=== PATIENT | male | born 1980 | race Caucasian/White ===

== ENCOUNTER 2021-01-10 18:06 | Emergency (ER) | payer MEDICAID ==
[~2021-01-10] VITALS: Ht 182.9 cm; Wt 88.5 kg
[2021-01-10 19:04] VITALS: BP 137/84
[2021-01-10] MEDS: Fluorescein Strips LEFT EYE ONE (19:09)
[2021-01-10] MEDS: Tetracaine 0.5% Opth 4ml Soln LEFT EYE ONE (19:10)
--- NOTE | 2021-01-10 19:19 | Emergency Room Report ---
History of Present Illness General Chief Complaint: Eye Problems Source: Patient Present Illness HPI 40-year-old male with no signal past medical history of hypertension currently medication here complaining of left eye pain and irritation that started after moving furniture 2 days ago. Denies any direct injury, chemical exposure splashes to the eye. Denies any vision changes. Denies wearing contact lenses or eyeglasses. Denies photophobia. Complains of yellow discharge from the left eye. Has not taken medication for symptom Allergies: Coded Allergies: No Known Allergies (Unverified , 01/10/21) COVID-19 Screening Contact w/high risk pt: No Experienced COVID-19 symptoms?: No COVID-19 Testing performed PARENT EDUCATOR: No Patient History Past Medical History: see triage record Past Surgical History: none Pertinent Family History: none Immunizations: UTD Reviewed Nursing Documentation: PMH: Agreed; PSxH: Agreed Nursing Documentation-PMH Past Medical History: No History, Except For Hx Hypertension: Yes Review of Systems All Other Systems: negative except mentioned in HPI Physical Exam Vital Signs Date Time Temp Pulse Resp B/P (MAP) Pulse Ox O2 Delivery O2 Flow Rate FiO2 01/10/21 18:49 98.8 87 18 137/84 (101) 98 Room Air Sp02 EP Interpretation: reviewed, normal General Appearance: no apparent distress, alert, GCS 15, non-toxic Head: normocephalic, atraumatic Eyes: left eye other - Bacterial conjunctivitis noted, no corneal abrasion or ulceration noted ENT: hearing grossly normal, normal pharynx, no angioedema, normal voice Neck: no bony tend Respiratory: no retraction, no accessory muscle use Cardiovascular #1: regular rate, rhythm, no edema Gastrointestinal: soft Musculoskeletal: back normal Neurologic: alert, motor strength/tone normal, oriented x3, sensory intact, responsive, speech normal Psychiatric: judgement/insight normal, memory normal, mood/affect normal, no suicidal/homicidal ideation Skin: no rash Lymphatic: no adenopathy Medical Decision Making PA Attestation All diagnoses and treatment plans were reviewed and discussed with my supervising physician Dr. Faye Diagnostic Impression: Primary Impression: Bacterial conjunctivitis ER Course 40-year-old male with no signal past medical history of hypertension currently medication here complaining of left eye pain and irritation that started after moving furniture 2 days ago. Denies any direct injury, chemical exposure splashes to the eye. Denies any vision changes. Denies wearing contact lenses or eyeglasses. Denies photophobia. Complains of yellow discharge from the left eye. Has not taken medication for symptom Ddx considered but are not limited to: bacterial conjunctivitis, allergic conjunctivitis, viral conjunctivitis, periorbital cellulitis, global trauma Vital signs: are WNL, pt. is afebrile H&PE are most consistent with: Bacterial conjunctivitis ORDERS: Ofloxacin ophthalmic ED INTERVENTIONS: None required at this time. DISCHARGE: At this time pt. is stable for d/c to home. Will provide printed patient care instructions, and any necessary prescriptions. Care plan and follow up instructions have been discussed with the patient prior to discharge. Patient take medication as directed, follow with heating and cooling technician, if worsening symptom return to the emergency room Last Vital Signs Date Time Temp Pulse Resp B/P (MAP) Pulse Ox O2 Delivery O2 Flow Rate FiO2 01/10/21 19:04 98.8 18 137/84 98 Room Air 01/10/21 18:49 87 Disposition: HOME, SELF-CARE Condition: Stable Scripts Ofloxacin (Ofloxacin) 5 Ml Drops 2 DROP OP Q6HR for 7 Days, #5 ML Prov: Jeff Cuellar 01/10/21 Referrals: NOT CHOSEN IPA/MD,REFERRING (PCP) Patient Instructions: Bacterial Conjunctivitis, [id number] Additional Instructions: Take medication as directed, follow primary care provider, if worsening symptoms return to the emergency room Jeff Cuellar Jan 10, 2021 19:19
[2021-01-10] MEDS ORDERED: OFLOXACIN10 ML OP (19:21)
[2021-01-10 19:25] VITALS: BP 137/84
--- NOTE | 2021-01-10 19:25 | NUR ---
ER DISCHARGE NOTE: Patient is cleared to be discharged per ERMD, pt is aox4, on room air, with stable vital signs. pt was given dc and prescription instructions, pt was able to verbalize understanding, pt id band removed without complications. pt is able to ambulate with steady gait. pt took all belongings.
== END 2021-01-10 19:26 | disposition home or self-care (01) ==
LOC: EMR 18:50
DX: H10.89 Other conjunctivitis (principal); I10 Essential (primary) hypertension
CPT/HCPCS: 99282

== ENCOUNTER 2021-01-14 15:24 | Emergency (ER) | payer MEDICAID, OTHER ==
[~2021-01-14] VITALS: Ht 182.9 cm; Wt 88.5 kg
[~2021-01-14 15:24] MED LIST: OFLOXACIN10 ML OP
--- NOTE | 2021-01-14 15:50 | Emergency Room Report ---
History of Present Illness General Chief Complaint: Eye Problems Source: Patient (Jeff Cuellar) Present Illness HPI 40-year-old male 3-year complaining of worsening right rotation. Patient was seen here 1 week ago, after moving furniture reporting the eye was irritated. Patient was prescribed ofloxacin ophthalmic reports that now the right eye is also irritated. Now has pain in the left eye. Denies any trauma. Reports that symptoms started ever since he moved into a new apartment. Has not had follow- up with [employer]. Vision has not changed. Complains of periorbital pain. Denies any cough or congestion. Denies fever and chills. (Jeff Cuellar) Allergies: Coded Allergies: No Known Allergies (Unverified , 01/10/21) COVID-19 Screening Contact w/high risk pt: No Experienced COVID-19 symptoms?: No COVID-19 Testing performed TOWNSHIP SUPERVISOR: No (Jeff Cuellar) Patient History Past Medical History: see triage record Past Surgical History: none Pertinent Family History: none Immunizations: UTD Reviewed Nursing Documentation: PMH: Agreed; PSxH: Agreed (Jeff Cuellar) Nursing Documentation-PMH Past Medical History: No History, Except For Hx Hypertension: Yes (Jeff Cuellar) Review of Systems All Other Systems: negative except mentioned in HPI (Jeff Cuellar) Physical Exam Vital Signs Date Time Temp Pulse Resp B/P (MAP) Pulse Ox O2 Delivery O2 Flow Rate FiO2 01/14/21 15:33 98.4 100 20 145/85 (105) 98 Room Air Sp02 EP Interpretation: reviewed, normal General Appearance: no apparent distress, alert, GCS 15, non-toxic Head: normocephalic, atraumatic Eyes: left eye other - Corneal ulceration not dendritic ENT: hearing grossly normal, normal pharynx, no angioedema, normal voice Neck: supple Respiratory: no retraction Cardiovascular #1: no murmur Gastrointestinal: soft Musculoskeletal: back normal Neurologic: alert, motor strength/tone normal, oriented x3, sensory intact, responsive, speech normal Psychiatric: judgement/insight normal, memory normal, mood/affect normal, no suicidal/homicidal ideation Skin: no rash, other - Periorbital cellulitis Lymphatic: no adenopathy (Jeff Cuellar) Medical Decision Making PA Attestation All my diagnosis and treatment plans were reviewed ad discussed with my supervising physician Dr. Najera (Jeff Cuellar) Diagnostic Impression: Primary Impression: Corneal ulcer Additional Impression: Periorbital cellulitis ER Course 40-year-old male 3-year complaining of worsening right rotation. Patient was seen here 1 week ago, after moving furniture reporting the eye was irritated. Patient was prescribed ofloxacin ophthalmic reports that now the right eye is also irritated. Now has pain in the left eye. Denies any trauma. Reports that symptoms started ever since he moved into a new apartment. Has not had follow- up with manager [employer]. Vision has not changed. Complains of periorbital pain. Denies any cough or congestion. Denies fever and chills. Ddx considered but are not limited to: bacterial conjunctivitis, allergic conjunctivitis, viral conjunctivitis, periorbital cellulitis, global trauma Vital signs: are WNL, pt. is afebrile H&PE are most consistent with: Nondendric left corneal ulcer, cellulitis, periorbital cellulitis ORDERS: Augmentin, ciprofloxacin ophthalmic, prednisone, Benadryl ED INTERVENTIONS: Toradol DISCHARGE: At this time pt. is stable for d/c to home. Will provide printed pat ient care instructions, and any necessary prescriptions. Care plan and follow up instructions have been discussed with the patient prior to discharge. Follow-up with manager bi[employer], worsening symptoms return to the emergency (Jeff Cuellar) Last Vital Signs Date Time Temp Pulse Resp B/P (MAP) Pulse Ox O2 Delivery O2 Flow Rate FiO2 01/14/21 15:33 98.4 100 20 145/85 (105) 98 Room Air (Jeff Cuellar) Status: improved (Moisés Najera MD) Disposition: HOME, SELF-CARE Condition: Stable Scripts Diphenhydramine HCl (Benadryl) 25 Mg Capsule 25 MG PO BID, #14 CAP Prov: Jeff Cuellar 01/14/21 Prednisone* (PREDNISONE*) 20 Mg Tablet 40 MG ORAL DAILY for 3 Days, #6 TAB Prov: Jeff Cuellar 01/14/21 Ciprofloxacin (Ciprofloxacin HCl) 2.5 Ml Drops 2 DROP BOTH EYES Q4H for 7 Days, #10 ML Prov: Jeff Cuellar 01/14/21 Amoxicillin/Potassium Clav 875-125* (AUGMENTIN 875-125 TABLET*) 1 Each Tablet 1 TAB ORAL TWICE A DAY for 7 Days, #14 TAB Prov: Jeff Cuellar 01/14/21 Patient Instructions: Bacterial Conjunctivitis, [id number], Cellulitis, [id number] Additional Instructions: Take medication as directed, follow with your manager bi[employer], if worsening symptom return to the emergency room Jeff Cuellar Jan 14, 2021 15:50 Moisés Najera MD Jan 15, 2021 13:59
[2021-01-14 15:52] VITALS: BP 157/79
[2021-01-14] MEDS ORDERED: BENADRYL25 M3 PO (15:52)
[2021-01-14] MEDS ORDERED: PREDNISONE20 MG ORAL (15:52)
[2021-01-14] MEDS ORDERED: AUGMENTIN 875-1 EAC1 ORAL (15:52)
[2021-01-14] MEDS ORDERED: CILOXAN 0.3% O1 DROP BOTH EYES (15:52)
[2021-01-14] MEDS: Tetracaine 0.5% Opth 4ml Soln LEFT EYE ONE (16:04)
[2021-01-14] MEDS: Fluorescein Strips RIGHT EYE ONE (16:04)
[2021-01-14] MEDS: Ketorolac 30mg Inj IM ONE (16:04)
[2021-01-14 16:25] VITALS: BP 140/79
--- NOTE | 2021-01-14 16:54 | NUR ---
ER DISCHARGE NOTE: patient is awake and oriented able to communicate, pain in the left eye has imporved with pain lessed to 3/10, he is able to open left eye, he has a steady gait about to walk in a straight line, patient given discharge summary packet along with prescription. friend is waiting for him to take home.
== END 2021-01-14 16:54 | disposition home or self-care (01) ==
LOC: EMR 15:51
DX: H16.002 Unspecified corneal ulcer, left eye (principal); L03.213 Periorbital cellulitis; I10 Essential (primary) hypertension
CPT/HCPCS: 96372; J1885; Z7502; 99283